=== PATIENT | male | born 1960 | race Caucasian/White ===

== ENCOUNTER → 2022-03-07 15:03 | Outpatient (REF) | payer OTHER, SELFPAY | LOC: ANHLAB 15:03 | PROVIDERS: PCP Physician Assistant; Visit Provider Nurse Practitioner | DX: L57.0 Actinic keratosis (principal) | CPT/HCPCS: 88305 ==

== ENCOUNTER → 2023-10-28 08:57 | Outpatient (CLI) | payer OTHER, SELFPAY ==
--- NOTE | ~2023-10-28 | XR_ITS ---
Lumbosacral Spine: AP and lateral views Clinical History: Pain Findings: The normal lordotic curve is maintained. The vertebral bodies and posterior elements are i ntact. Advanced degenerative disc narrowing present at L4-L5 and L5-S1. Remaining disc spaces are pre served. Moderate facet joint degenerative changes are present throughout the lumbar spine. The sacroi liac joints are normally outlined. Impression: [id number] degenerative spondylosis, as above. Reviewed, dictated and finalized at location M. R [employer]ER Impression: [id number] degenerative spondylosis, as above.
--- NOTE | ~2023-10-28 | XR_ITS ---
AP and lateral views of the bilateral hips Clinical history: Pain Findings: No acute fracture or dislocation is seen. Osseous alignment is anatomic. Bilateral hip and SI joint spaces are preserved. Soft tissues are unremarkable. Impression: No significant abnormality is seen. Reviewed, dictated and finalized at location . 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
== END ==
PROVIDERS: PCP Physician Assistant; Visit Provider Chiropractor
DX: M25.551 Pain in right hip (principal); M43.05 Spondylolysis, thoracolumbar region
CPT/HCPCS: 72100; 73521

== ENCOUNTER 2025-03-28 12:19 | Outpatient (CLI) | payer OTHER, SELFPAY ==
--- NOTE | ~2025-03-28 | XR_ITS ---
XR knee LT 3V 03/28/2025 12:42 Indication: Left knee pain Procedure: 3 views left knee Comparison: No prior studies for comparison. Findings: There is mild tricompartment osteoarthritis. No fracture, subluxation or dislocation. No matthew int effusion. No foreign bodies. Impression: 1: Mild tricompartment osteoarthritis. Reviewed, dictated and finalized at location B. Impression: 1: Mild tricompartment osteoarthritis.
== END 2025-03-28 12:20 | disposition home or self-care (01) ==
LOC: MICIMG 12:21
PROVIDERS: PCP Physician Assistant; Visit Provider Physician Assistant
DX: M17.12 Unilateral primary osteoarthritis, left knee (principal)
CPT/HCPCS: 73562

== ENCOUNTER 2025-09-29 10:43 | Outpatient (CLI) | payer OTHER, SELFPAY ==
--- NOTE | ~2025-09-29 | US_ITS ---
EXAMINATION: US renal BI DATE: 09/29/2025 11:29 INDICATION: Abnormal findings of blood chemistry. TECHNIQUE: Multiple ultrasound grayscale images of the kidneys were obtained. COMPARISON: None. FINDINGS: The right kidney measures 9.1 x 4.4 x 5.7 cm. The left kidney measures 9.8 x 5.1 x 5.6 cm. The kidneys demonstrate normal echogenicity. Mild caliectasis versus small parapelvic cysts at the mid left kidney without josephine hydronephrosis. There is no hydronephrosis in the right kidney. No stones identified. The bladder is normal. IMPRESSION: 1. Mild caliectasis versus parapelvic cysts at the mid left kidney without josephine hydronephrosis. Reviewed, dictated and finalized at location A. [employer]IC B[employer]SAW TENDER IMPRESSION: 1. Mild caliectasis versus parapelvic cysts at the mid left kidney without fra nk hydronephrosis.
== END 2025-09-29 10:44 | disposition home or self-care (01) ==
PROVIDERS: PCP Physician Assistant; Visit Provider Physician Assistant
DX: R79.89 Other specified abnormal findings of blood chemistry (principal)
CPT/HCPCS: 76770